=== PATIENT | female | born 1975 | race Caucasian/White ===

== ENCOUNTER 2017-04-11 01:48 | Emergency (ER) | payer OTHER ==
[~2017-04-11] VITALS: Ht 167.6 cm; Wt 77.6 kg
--- NOTE | 2017-04-11 01:57 | NUR ---
PT PRESENTED TO THE ER WITH A C/O LT ANKLE PAIN. PT WAS NOT ABLE TO BEAR WEIGHT ON LT FOOT. PT ARRIVED IN A WC. PT WENT TO BED #2 AND WAS TRIAGED. PT IS ON THE MONITOR AND CONTINUOUS PULSE OX.
--- NOTE | 2017-04-11 02:00 | NUR ---
DR. GARCIA IS AT THE BEDSIDE SPEAKING TO THE PT.
--- NOTE | 2017-04-11 02:11 | NUR ---
XRAY IN PROGRESS AT THE BEDSIDE.
[2017-04-11] MEDS ORDERED: IBUPROFEN 400 MG TABLET ONE (02:25)
[2017-04-11] MEDS ORDERED: IBUPROFEN 400 MG TABLET PO ONE (02:30)
--- NOTE | 2017-04-11 02:38 | NUR ---
TATIANA, EMT IS AT THE BEDSIDE TO WRAP PT'S LT ANKLE WITH DARON WRAP. Crutches dispensed. Pt instructed on proper use of crutches. Patient able to demonstrate correct use of crutches.
--- NOTE | 2017-04-11 02:38 | NUR ---
DR. GARCIA IS AT THE BEDSIDE SPEAKING TO THE PT RE: RADIOLOGY FINDINGS.
[2017-04-11 02:48] VITALS: BP 123/78
--- NOTE | 2017-04-11 02:49 | NUR ---
Patient discharged to home in stable condition. Written and verbal after care instructions given. Patient verbalizes understanding of instruction. PT AMBULATED OUT WITH CRUTCHES. VSS.
== END 2017-04-11 02:49 | disposition home or self-care (01) ==
LOC: ER 01:49
DX: S93.492A Sprain of other ligament of left ankle, initial encounter (principal); F17.200 Nicotine dependence, unspecified, uncomplicated; Z87.442 Personal history of urinary calculi; Z88.2 Allergy status to sulfonamides; Z88.1 Allergy status to other antibiotic agents; X50.1XXA Overexertion from prolonged static or awkward postures, initial encounter; Y93.01 Activity, walking, marching and hiking; Y92.89 Other specified places as the place of occurrence of the external cause; Y99.8 Other external cause status
CPT/HCPCS: 73610; 99284; A4606; Z7610

== ENCOUNTER 2018-04-26 16:23 | Emergency (ER) | payer OTHER ==
[~2018-04-26] VITALS: Ht 175.3 cm; Wt 81.2 kg
--- NOTE | 2018-04-26 16:23 | NUR ---
PT BIBSELF FROM HOME C/O MOUTH SORES AND RIGHT INDEX BLISTER WITH PAINL POSSIBLE ALLERGIC RX FROM [facility]; PT AAOX4, RESPIRATIONS EVEN AND UNLABORED, NO SOB, NAD NOTED, VSS, PENDING ER PROVIER EVAL
[2018-04-26] MEDS ORDERED: DEXAMETHASONE SOD PHOSPHATE 10 MG/ML VIAL ONE (16:55)
[2018-04-26 17:00] LABS: BASOPHILS % (AUTO) 0.8 % (0.0-2.0); EOSINOPHILS % (AUTO) 1.5 % (0.0-6.0); HEMATOCRIT 37 % (33-45); HEMOGLOBIN 11.7 g/dL (11.5-14.8); LYMPHOCYTES # (AUTO) 1.8 /CMM (0.8-4.8); LYMPHOCYTES % (AUTO) 37.5 % (20.0-44.0); MEAN CORPUSCULAR HGB CONC 32 g/dl (31.0-36.0); MEAN CORPUSCULAR VOLUME 80 fL (82-100); MONOCYTES # (AUTO) 0.4 /CMM (0.1-1.30); MONOCYTES % (AUTO) 9.2 % (2.0-12.0); NEUTROPHILS # (AUTO) 2.4 /CMM (1.8-8.9); PLATELET COUNT (AUTO) 295 /CMM (150-450); RED BLOOD CELL COUNT(AUTO) 4.58 MIL/uL (4.0-5.2); WHITE BLOOD COUNT (AUTO) 4.8 K/uL (4.3-11.0)
[2018-04-26] MEDS ORDERED: DEXAMETHASONE SOD PHOSPHATE 4 MG/ML VIAL IM ONE (17:00)
[2018-04-26 17:11] LABS: CALCIUM, SERUM 9.2 mg/dL (8.5-10.1); CREATININE 0.6 mg/dL (0.6-1.3); POTASSIUM 3.8 mmol/L (3.5-5.1)
[2018-04-26 17:17] LABS: ALBUMIN 3.9 g/dL (3.4-5.0); BILIRUBIN,DIRECT 0.1 mg/dL (0.0-0.2); BILIRUBIN,TOTAL 0.3 mg/dL (0.2-1.0); TOTAL PROTEIN, SERUM 7.6 g/dL (6.4-8.2)
[2018-04-26 18:08] VITALS: BP 129/80
--- NOTE | 2018-04-26 18:10 | NUR ---
Patient discharged to home in stable condition. Written and verbal after care instructions given. Patient verbalizes understanding of instruction.
== END 2018-04-26 18:11 | disposition home or self-care (01) ==
LOC: ER 16:27
DX: K12.1 Other forms of stomatitis (principal); M79.644 Pain in right finger(s); F17.200 Nicotine dependence, unspecified, uncomplicated; Z87.442 Personal history of urinary calculi; Z87.440 Personal history of urinary (tract) infections; Z98.84 Bariatric surgery status; Z88.2 Allergy status to sulfonamides; Z88.1 Allergy status to other antibiotic agents; Z88.8 Allergy status to other drugs, medicaments and biological substances
CPT/HCPCS: 36415; 80048; 80076; 85025; 85652; 85730; 86140; 96372; 99283; A4606; J1100; Z7610

== ENCOUNTER 2019-06-01 10:34 | Emergency (ER) | payer OTHER ==
[~2019-06-01] VITALS: Ht 170.2 cm; Wt 81.6 kg
[2019-06-01 10:40] VITALS: BP 135/83
--- NOTE | 2019-06-01 10:48 | NUR ---
SEEN AND EXAMINED BY DR. MERIDA.
--- NOTE | 2019-06-01 11:01 | NUR ---
Patient discharged to home in stable condition. Written and verbal after care instructions given. Patient verbalizes understanding of instruction.
== END 2019-06-01 11:04 | disposition home or self-care (01) ==
LOC: ER 10:38
DX: J21.9 Acute bronchiolitis, unspecified (principal); F10.10 Alcohol abuse, uncomplicated; F17.200 Nicotine dependence, unspecified, uncomplicated; Y90.9 Presence of alcohol in blood, level not specified; Z71.6 Tobacco abuse counseling; Z87.442 Personal history of urinary calculi; Z98.890 Other specified postprocedural states; Z88.2 Allergy status to sulfonamides; Z88.8 Allergy status to other drugs, medicaments and biological substances

== ENCOUNTER 2020-04-07 15:07 | Emergency (ER) | payer OTHER ==
[~2020-04-07] VITALS: Ht 175.3 cm; Wt 79.8 kg
[2020-04-07 15:17] VITALS: BP 134/89
[2020-04-07 16:33] LABS: BILIRUBIN,URINE NEGATIVE (NEGATIVE); BLOOD, URINE NEGATIVE Ery/uL (NEGATIVE); COLOR,URINE YELLOW (YELLOW); LEUKOCYTE ESTERASE ,URINE SMALL (NEGATIVE); NITRITE, URINE NEGATIVE (NEGATIVE); PH,URINE 5.5 (5.0-8.0); PROTEIN,URINE NEGATIVE (NEGATIVE); UGLUCOSE NEGATIVE (NEGATIVE); UROBILINOGEN,URINE 0.2 EU/dL (0.2)
[2020-04-07 16:39] LABS: RBC,URINE 0-2 /HPF (0-2)
[2020-04-07 16:40] LABS: BACTERIA,URINE 1+ /HPF (None Seen); SQUAMOUS EPITHELIAL CELL,UR Few /HPF (None Seen); WBC,URINE 81-100 /HPF (0-3)
--- NOTE | 2020-04-07 18:42 | NUR ---
Patient discharged to home in stable condition. Written and verbal after care instructions given. Patient verbalizes understanding of instruction.
== END 2020-04-07 18:42 | disposition home or self-care (01) ==
LOC: ER 15:12
DX: N39.0 Urinary tract infection, site not specified (principal); I25.10 Atherosclerotic heart disease of native coronary artery without angina pectoris; Z87.442 Personal history of urinary calculi; Z90.89 Acquired absence of other organs; Z98.890 Other specified postprocedural states; Z88.1 Allergy status to other antibiotic agents; Z88.2 Allergy status to sulfonamides; Z88.8 Allergy status to other drugs, medicaments and biological substances
CPT/HCPCS: 81001; 84703-TC; 87086-TC; 87186-TC

== ENCOUNTER 2021-06-23 17:33 | Emergency (ER) | payer OTHER ==
[~2021-06-23] VITALS: Ht 172.7 cm; Wt 79.4 kg
--- NOTE | 2021-06-23 18:00 | NUR ---
THE PATIENT BIBS FOR UTI SYMPTOMS: PAINFUL URINATION. WILL CONTINUE TO MONITOR THE PATIENT.
[2021-06-23 18:40] LABS: BILIRUBIN,URINE NEGATIVE (NEGATIVE); COLOR,URINE YELLOW (YELLOW); LEUKOCYTE ESTERASE ,URINE NEGATIVE (NEGATIVE); NITRITE, URINE NEGATIVE (NEGATIVE); PH,URINE 8.5 (5.0-8.0); PROTEIN,URINE NEGATIVE (NEGATIVE); UGLUCOSE NEGATIVE (NEGATIVE); UROBILINOGEN,URINE 0.2 EU/dL (0.2)
[2021-06-23] MEDS ORDERED: NITR100C PO (19:10)
[2021-06-23 19:20] VITALS: BP 134/83
[2021-06-23 20:09] LABS: RBC,URINE 0-2 /HPF (0-2); WBC,URINE 0-2 /HPF (0-3)
[2021-06-23 20:10] LABS: BACTERIA,URINE Many /HPF (None Seen); SQUAMOUS EPITHELIAL CELL,UR Few /HPF (None Seen)
[2021-06-23 20:11] LABS: URINE AMORPHOUS PHOSPHATES Many /HPF (None Seen)
== END 2021-06-23 19:20 | disposition home or self-care (01) ==
LOC: ER 17:36
DX: N39.0 Urinary tract infection, site not specified (principal); F17.200 Nicotine dependence, unspecified, uncomplicated; Z98.890 Other specified postprocedural states; Z88.1 Allergy status to other antibiotic agents; Z88.2 Allergy status to sulfonamides; Z88.8 Allergy status to other drugs, medicaments and biological substances; Z79.899 Other long term (current) drug therapy
CPT/HCPCS: 81001; 84703-TC; 87086-TC

== ENCOUNTER 2023-11-17 12:23 | Emergency (ER) | payer OTHER ==
[~2023-11-17] VITALS: Ht 172.7 cm; Wt 83.9 kg
[~2023-11-17 12:23] MED LIST: NITR100C PO
[2023-11-17 12:48] VITALS: TEMP 98.3
[2023-11-17] MEDS ORDERED: SULF1TAB48 PO (13:19)
[2023-11-17] MEDS ORDERED: CEFD300C3 PO (13:19)
[2023-11-17] MEDS ORDERED: MUPI15CR TP (13:19)
[2023-11-17 14:04] VITALS: BP 119/81; O2SAT 98
== END 2023-11-17 14:03 | disposition home or self-care (01) ==
LOC: ER 12:44
DX: L02.436 Carbuncle of left lower limb (principal); F17.200 Nicotine dependence, unspecified, uncomplicated; Z86.79 Personal history of other diseases of the circulatory system; Z87.442 Personal history of urinary calculi; Z87.448 Personal history of other diseases of urinary system; Z88.8 Allergy status to other drugs, medicaments and biological substances; Z88.2 Allergy status to sulfonamides